=== PATIENT | female | born 1945 | race Caucasian/White ===

== ENCOUNTER 2016-04-27 19:05 | Emergency (ER) | payer MEDICARE ==
[~2016-04-27] VITALS: Ht 172.7 cm; Wt 98.0 kg
[~2016-04-27 19:05] MED LIST: ALEN70TA39 PO; AMIT25 PO; ASPI81TA82 PO; CARV12.52 PO; FURO1TAB93 PO; KLOR20TA6 PO; LASI20TA PO; LEVO50TA4 PO; LOSA50TA PO; METF850 PO; PIOG15 PO; SIMV40 PO; ULTR50TA PO; VITA20003 PO
[2016-04-27 19:08] VITALS: BP 165/77; PULSE 84; RESP 15; TEMP 98.1; O2SAT 96
[2016-04-27 20:14] VITALS: BP 142/78; PULSE 78; RESP 16; O2SAT 98
[2016-04-27] MEDS ORDERED: KETOROLAC TROMETHAMINE 30 MG/ML (IVP) VIAL IVP ONE (20:15)
[2016-04-27] MEDS ORDERED: SODIUM CHLORID 0.9% 500 ML INJ 500 ML IV ONE (20:15)
[2016-04-27] MEDS ORDERED: SODIUM CHLORIDE 0.9% FLUSH 5 ML FLUSH IVF PRN (20:15)
[2016-04-27] MEDS ORDERED: HYDROmorphone HCL PF 1 MG/ML VIAL IVS ONE (20:15)
[2016-04-27] MEDS ORDERED: ONDANSETRON HCL 4 MG/2 ML VIAL IVP ONE (20:15)
--- NOTE | 2016-04-27 20:15 | PD ---
HPI Chief Complaint: Flank/Kidney Pain Time Seen by Provider: 20:00 Travel History International Travel<30 days: No Contact w/Intl Traveler<30days: No Traveled to known affect area: No History of Present Illness HPI The patient is a 70-year-old female who presents emergency department for right flank pain and right low back pain that started this morning. The patient complains of pain located mid right lumbar region and flank area that is nonradiating, but is associated with hematuria. The patient denies any urgency, frequency, or dysuria. The patient does complain of mild nausea, but denies any vomiting. The patient does have a history of similar symptoms in the past secondary to kidney stone, and needed lithotripsy at that time for the kidney stone. The patient does not have a local urologist, her primary physician is in [place], [place]. The patient does have a history of goiter removal and is currently on level thyroxine, as well as a history of cardiomyopathy for which she takes medications. Symptoms are moderate, possibly exacerbated by kidney stone, and there are no current alleviating factors. PFSH Past Medical History Cancer: Yes (LEFT BREAST 2002) Cardiovascular Problems: Yes (HEART CATH -INSERTION AICD- TURNED OFF) Diabetes: Yes Patient Takes Glucophage: Yes Endocrine: Yes Genitourinary: Yes (STONES) Hepatitis: No Hiatal Hernia: No Immune Disorder: No Kidney Stones: Yes Musculoskeletal: Yes (BACK AND NECK PAIN) Neurologic: Yes (NEUROPATHY TOES) Psychiatric: No Reproductive: No Respiratory: No Thyroid Disease: Yes Tetanus Vaccination: > 5 Years Influenza Vaccination: Yes Past Surgical History AICD: Yes (AICD - TURNED OFF) Cardiac Surgery: Yes (HEART CATH -INSERTION AICD; AICD TURNED OFF) Oral Surgery: Yes (T&A AGE 7) Other Surgery: Yes (PARATHYROID REMOVAL, GOITER REMOVAL) Social History Alcohol Use: No Tobacco Use: Yes (1 PPD) Substance Use: No Allergies-Medications (Allergen,Severity, Reaction): Coded Allergies: Amoxicillin (Unverified Allergy, Intermediate, HIVES, 04/27/16) Augmentin (Unverified Allergy, Intermediate, NAUSEA, 04/27/16) Keflex (Unverified Allergy, Intermediate, ITCHING , 04/27/16) Morphine (Unverified Allergy, Intermediate, VOMITING, 04/27/16) Cipro (Unverified Allergy, Mild, ITCHING, 04/27/16) Hydrocodone (Unverified Allergy, Unknown, NAUSEA, 04/27/16) Reported Meds & Prescriptions Reported Meds & Active Scripts Active Reported Vitamin D3 (Cholecalciferol) 2,000 Unit Chew 2,000 Units CHEW DAILY Simvastatin 40 Mg Tab 40 Mg PO HS Losartan (Losartan Potassium) 50 Mg Tab 50 Mg PO DAILY Levothyroxine (Levothyroxine Sodium) 75 Mcg Tab 75 Mcg PO DAILY Klor-Con M20 (Potassium Chloride Microencaps) 20 Meq Tab 20 Meq PO DAILY Furosemide 40 Mg Tab 40 Mg PO DAILY Carvedilol 12.5 Mg Tab 12.5 Mg PO BID Aspirin 81 (Aspirin) 81 Mg Tabdr 81 Mg PO DAILY Amitriptyline (Amitriptyline HCl) 25 Mg Tab 25 Mg PO HS Actoplus Met (Pioglitazone-Metformin) 15-850 mg Tab 1 Tab PO DAILY Review of Systems Except as stated in HPI: all other systems reviewed are Neg General / Constitutional: No: Fever Cardiovascular: No: Chest Pain or Discomfort Respiratory: No: Shortness of Breath Gastrointestinal: Positive: Nausea, No: Vomiting Genitourinary: Positive: Hematuria, Flank Pain, No: Urgency, Frequency, Dysuria Musculoskeletal: Positive: Pain (right mid lumbar pain), No: Weakness Skin: No Rash Physical Exam Narrative GENERAL: Awake, alert, pleasant 70-year-old female who appears her stated age is in no acute respiratory distress. SKIN: Warm and dry. HEAD: Atraumatic. Normocephalic. EYES: Pupils equal and round. No scleral icterus. No injection or drainage. ENT: No nasal bleeding or discharge. Mucous membranes pink and moist. NECK: Trachea midline. No JVD. CARDIOVASCULAR: Regular rate and rhythm. No murmur appreciated. Pacemaker in place chest wall. RESPIRATORY: No accessory muscle use. Clear to auscultation. Breath sounds equal bilaterally. GASTROINTESTINAL: Abdomen soft, non-tender, nondistended. No rebound tenderness. Back: No CVA tenderness. MUSCULOSKELETAL: No obvious deformities. No clubbing. No cyanosis. No edema. NEUROLOGICAL: Awake and alert. No obvious cranial nerve deficits. Motor grossly within normal limits. Normal speech. PSYCHIATRIC: Appropriate mood and affect; insight and judgment normal. Data Data Last Documented VS Vital Signs Date Time Temp Pulse Resp B/P Pulse Ox O2 Delivery O2 Flow Rate FiO2 04/27/16 21:54 76 14 138/74 97 Room Air 04/27/16 19:08 98.1 Orders Complete Blood Count With Diff (04/27/16 20:06) Comprehensive Metabolic Panel (04/27/16 20:06) Lipase (04/27/16 20:06) Urinalysis - C+S If Indicated (04/27/16 20:06) Ct Abd/Pel W/O Iv Contrast (04/27/16 20:06) Iv Access Insert/Monitor (04/27/16 20:06) Ecg Monitoring (04/27/16 20:06) Oximetry (04/27/16 20:06) Ondansetron Inj (Zofran Inj) (04/27/16 20:15) Sodium Chloride 0.9% Flush (Ns Flush) (04/27/16 20:15) Ketorolac Inj (Toradol Inj) (04/27/16 20:15) Hydromorphone Pf Inj (Dilaudid Pf Inj) (04/27/16 20:15) Sodium Chlorid 0.9% 500 Ml Inj (Ns 500 M (04/27/16 20:15) Urine Culture (04/27/16 20:13) Prochlorperazine Inj (Compazine Inj) (04/27/16 21:00) Labs Laboratory Tests Test 04/27/16 04/27/16 20:13 20:51 White Blood Count 8.7 TH/MM3 Red Blood Count 3.87 MIL/MM3 Hemoglobin 12.3 GM/DL Hematocrit 35.0 % Mean Corpuscular Volume 90.4 FL Mean Corpuscular Hemoglobin 31.7 PG Mean Corpuscular Hemoglobin 35.1 % Concent Red Cell Distribution Width 15.2 % Platelet Count 202 TH/MM3 Mean Platelet Volume 9.7 FL Neutrophils (%) (Auto) 79.4 % Lymphocytes (%) (Auto) 13.0 % Monocytes (%) (Auto) 5.8 % Eosinophils (%) (Auto) 1.4 % Basophils (%) (Auto) 0.4 % Neutrophils # (Auto) 6.9 TH/MM3 Lymphocytes # (Auto) 1.1 TH/MM3 Monocytes # (Auto) 0.5 TH/MM3 Eosinophils # (Auto) 0.1 TH/MM3 Basophils # (Auto) 0.0 TH/MM3 CBC Comment DIFF FINAL Differential Comment Urine Color LIGHT-YELLOW Urine Turbidity CLEAR Urine pH 5.0 Urine Specific [place] 1.004 Urine Protein TRACE mg/dL Urine Glucose (UA) NEG mg/dL Urine Ketones NEG mg/dL Urine Occult Blood LARGE Urine Nitrite NEG Urine Bilirubin NEG Urine Urobilinogen LESS THAN 2.0 MG/DL Urine Leukocyte Esterase TRACE Urine RBC 2 /hpf Urine WBC 2 /hpf Urine Amorphous Sediment RARE Urine Bacteria MOD /hpf Microscopic Urinalysis Comment CULTURE INDICATED Sodium Level 132 MEQ/L Potassium Level 4.2 MEQ/L Chloride Level 97 MEQ/L Carbon Dioxide Level 25.4 MEQ/L Anion Gap 10 MEQ/L Blood Urea Nitrogen 25 MG/DL Creatinine 1.89 MG/DL Estimat Glomerular Filtration 26 ML/MIN Rate Random Glucose 108 MG/DL Calcium Level 10.0 MG/DL Total Bilirubin 0.4 MG/DL Aspartate Amino Transf 21 U/L (AST/SGOT) Alanine Aminotransferase 21 U/L (ALT/SGPT) Alkaline Phosphatase 58 U/L Total Protein 7.3 GM/DL Albumin 3.6 GM/DL Lipase 83 U/L [facility] Medical Decision Making Medical Screen Exam Complete: Yes Emergency Medical Condition: Yes Medical Record Reviewed: Yes Interpretation(s) Laboratory Tests Test 04/27/16 04/27/16 20:13 20:51 White Blood Count 8.7 TH/MM3 Red Blood Count 3.87 MIL/MM3 Hemoglobin 12.3 GM/DL Hematocrit 35.0 % Mean Corpuscular Volume 90.4 FL Mean Corpuscular Hemoglobin 31.7 PG Mean Corpuscular Hemoglobin 35.1 % Concent Red Cell Distribution Width 15.2 % Platelet Count 202 TH/MM3 Mean Platelet Volume 9.7 FL Neutrophils (%) (Auto) 79.4 % Lymphocytes (%) (Auto) 13.0 % Monocytes (%) (Auto) 5.8 % Eosinophils (%) (Auto) 1.4 % Basophils (%) (Auto) 0.4 % Neutrophils # (Auto) 6.9 TH/MM3 Lymphocytes # (Auto) 1.1 TH/MM3 Monocytes # (Auto) 0.5 TH/MM3 Eosinophils # (Auto) 0.1 TH/MM3 Basophils # (Auto) 0.0 TH/MM3 CBC Comment DIFF FINAL Differential Comment Urine Color LIGHT-YELLOW Urine Turbidity CLEAR Urine pH 5.0 Urine Specific [place] 1.004 Urine Protein TRACE mg/dL Urine Glucose (UA) NEG mg/dL Urine Ketones NEG mg/dL Urine Occult Blood LARGE Urine Nitrite NEG Urine Bilirubin NEG Urine Urobilinogen LESS THAN 2.0 MG/DL Urine Leukocyte Esterase TRACE Urine RBC 2 /hpf Urine WBC 2 /hpf Urine Amorphous Sediment RARE Urine Bacteria MOD /hpf Microscopic Urinalysis Comment CULTURE INDICATED Sodium Level 132 MEQ/L Potassium Level 4.2 MEQ/L Chloride Level 97 MEQ/L Carbon Dioxide Level 25.4 MEQ/L Anion Gap 10 MEQ/L Blood Urea Nitrogen 25 MG/DL Creatinine 1.89 MG/DL Estimat Glomerular Filtration 26 ML/MIN Rate Random Glucose 108 MG/DL Calcium Level 10.0 MG/DL Total Bilirubin 0.4 MG/DL Aspartate Amino Transf 21 U/L (AST/SGOT) Alanine Aminotransferase 21 U/L (ALT/SGPT) Alkaline Phosphatase 58 U/L Total Protein 7.3 GM/DL Albumin 3.6 GM/DL Lipase 83 U/L CT of the abdomen and pelvis reveals a 9 mm stone in the distal right ureter causing severe dilatation of the more proximal collecting system and ureter. There is also prominent right perinephric stranding extending into the right retroperitoneum. Differential Diagnosis Differential diagnosis includes nephrolithiasis, pyelonephritis, atypical cholecystitis, inferior myocardial infarction, lower lobe pneumonia, UTI, biliary colic, choledocholithiasis. Narrative Course IV was established, labs were drawn and sent, and the patient was placed on cardiac telemetry monitoring and continuous pulse oximetry monitoring. The patient was inlayer silver Dilaudid, Toradol, Zofran, and IV fluids. Noncontrast CT of the abdomen and pelvis was performed to evaluate for possible nephrolithiasis. UA was sent to lab. UA reveals blood. Creatinine is elevated at 1.89, her last creatinine was 0.[address] the abdomen and pelvis reveals a 9 mm stone in the distal right ureter causing severe dilatation of the more proximal collecting system and ureter with prominent right perinephric stranding extending into the right retroperitoneum. Therefore , the on-call urologist, Dr. Helms, was paged at 10 PM. I discussed the patient with the urologist, who states that the patient's symptoms have improved she can follow-up in the office in Saturday, if her symptoms persist, she can be admitted to the medical service. I do discussion with the patient regarding 23 hour observation with urology consultation for possible stent placement versus outpatient follow-up. The patient states her pain has resolved and she would prefer to try outpatient follow-up. Therefore, the patient will be discharged on Zofran, Phenergan, Percocet, and Flomax. She is advised to return if symptoms worsen or progress. The patient agrees and understands. Diagnosis Primary Impression: Nephrolithiasis Additional Impression: Hydronephrosis Qualified Code: N13.2 - Hydronephrosis with urinary obstruction due to renal calculus Referrals: Garrett Helms MD call for appointment Call for appt. on Saturday Patient Instructions: General Instructions, Narcotic given in the ED Additional Instructions: Follow-up with the urologist on Saturday. Return if symptoms worsen or progress. Plenty of fluids to stay hydrated. Med/Other Pt SpecificInfo: Prescription(s) given Scripts Tamsulosin (Flomax)0.4 Mg Cap0.4 Mg PO HS 10 Days Ref 0 Prov:Matthew Pitts MD 04/27/16 Promethazine (Phenergan)25 Mg Tab25 Mg PO ONCE #15 TAB Ref 0 Prov:Matthew Pitts MD 04/27/16 Ondansetron Odt (Zofran Odt)4 Mg Tab4 Mg SL Q6HR PRN (Nausea/Vomiting) #10 TAB Ref 0 Prov:Matthew Pitts MD 04/27/16 Oxycodone-Acetaminophen (Percocet)10-325 mg Tab1 Tab PO Q6H PRN (PAIN) #20 TAB Ref 0 Prov:Matthew Pitts MD 04/27/16 Disposition: 01 DISCHARGE HOME Condition: Stable Matthew Pitts MD Apr 27, 2016 20:14
[2016-04-27] MEDS ORDERED: CHOL1CHW5 CHEW (20:21)
[2016-04-27] MEDS ORDERED: LEVO75TA3 PO (20:21)
[2016-04-27] MEDS ORDERED: AMIT25TA9 PO (20:21)
[2016-04-27] MEDS ORDERED: SIMV40TA PO (20:21)
[2016-04-27] MEDS ORDERED: FURO40TA PO (20:21)
[2016-04-27] MEDS ORDERED: ACTO15TA PO (20:21)
[2016-04-27] MEDS ORDERED: CARV12.52 PO (20:21)
[2016-04-27] MEDS ORDERED: POTA-245 PO (20:21)
[2016-04-27] MEDS ORDERED: LOSA50TA PO (20:21)
[2016-04-27] MEDS ORDERED: ASPI-110 PO (20:21)
[2016-04-27 20:33] LABS: AUTOMATED NEUTROPHIL # 6.9 TH/MM3 (1.8-7.7); BASOPHIL % 0.4 % (0.0-2.0); EOSINOPHIL # 0.1 TH/MM3 (0-0.4); EOSINOPHIL % 1.4 % (0.0-4.0); HEMO FLAGS DIFF FINAL; LYMPHOCYTE # 1.1 TH/MM3 (1.0-4.8); MEAN CELL VOLUME 90.4 FL (80.0-100.0); MEAN CORPUSCULAR HEMOGLOBIN 31.7 PG (27.0-34.0); MEAN CORPUSCULAR HGB CONC 35.1 % (32.0-36.0); MONO % 5.8 % (0.0-8.0); NEUT % 79.4 % (16.0-70.0); PLATELET COUNT 202 TH/MM3 (150-450); RED BLOOD COUNT 3.87 MIL/MM3 (4.00-5.30); RED CELL DISTRIBUTION WIDTH 15.2 % (11.6-17.2); WHITE BLOOD COUNT 8.7 TH/MM3 (4.0-11.0)
[2016-04-27 20:44] LABS: BACTERIA, URINE MOD /hpf; BLOOD, URINE LARGE (NEG); COMMENT (UR) CULTURE INDICATED; CULTURE IF INDICATED CULTURE INDICATED; GLUCOSE,URINE NEG (NEG); KETONE, URINE NEG (NEG); NITRITE,URINE NEG (NEG); URINE COLOR LIGHT-YELLOW (YELLW/STRAW)
[2016-04-27 21:00] VITALS: BP 132/68; PULSE 80; RESP 14; O2SAT 96
[2016-04-27] MEDS ORDERED: PROCHLORPERAZINE INJ 10 MG/2 ML VIAL IVS ONE (21:00)
[2016-04-27 21:29] LABS: ANION GAP 10 MEQ/L (5-15); AST (GOT) 21 U/L (15-37); BICARBONATE 25.4 MEQ/L (21.0-32.0); BLOOD UREA NITROGEN 25 MG/DL (7-18); CHLORIDE 97 MEQ/L (98-107); GLOMERULAR FILTRATION RATE 26 ML/MIN (>89); POTASSIUM 4.2 MEQ/L (3.5-5.1); SODIUM (NA) 132 MEQ/L (136-145)
[2016-04-27 21:33] LABS: ALKALINE PHOSPHATASE 58 U/L (45-117); ALT (GPT) 21 U/L (10-53); TOTAL BILIRUBIN ADULT 0.4 MG/DL (0.2-1.0)
--- NOTE | 2016-04-27 21:48 | RADRPT ---
EXAM DATE/TIME: 04/27/2016 20:31 [facility] COMPARISON: No previous studies available for comparison. INDICATIONS : Right flank pain. ORAL CONTRAST: No oral contrast ingested. RADIATION DOSE: 7.60 CTDIvol (mGy) MEDICAL HISTORY : Diabetes mellitus type 2. Carcinoma, breast. SURGICAL HISTORY : Pacemaker. parathyroid removed ENCOUNTER: Initial ACUITY: 1 day PAIN SCALE: 10/10 LOCATION: Right flank TECHNIQUE: Volumetric scanning of the abdomen and pelvis was performed. Using automated exposure control and adjustment of the mA and/or kV according to patient size, radiation dose was kept as low as reasonably achievable to obtain optimal diagnostic quality images. FINDINGS: There is a 9 mm stone seen at the right distal ureter at the mid pelvis. This causes s evere dilatation of the right collecting system and more proximal aspect of the ureter. There is per inephric stranding seen on the right side. The left kidney is free of stones. The liver, spleen, pancreas, and adrenal glands are normal. Scattered atherosclerotic calcifications are seen in the arterial system. No aneurysm is seen. Pelvic structures appear grossly intact. The bowel appears grossly intact. CONCLUSION: 9 mm stone in the distal right ureter causing severe dilatation of the more proximal collecting system and ureter. There is also prominent right perinephric stranding extending into the right retroperitoneum. Tay Farah MD on April 27, 2016 at 21:27 Board Certified Radiologist. This report was verified electronically.
[2016-04-27 21:54] VITALS: BP 138/74; PULSE 76; RESP 14; O2SAT 97
[2016-04-27] MEDS ORDERED: TAMS5CAP PO (22:51)
[2016-04-27] MEDS ORDERED: PROM25TA5 PO (22:51)
[2016-04-27] MEDS ORDERED: PERC10TA27 PO (22:51)
[2016-04-27] MEDS ORDERED: ZOFR4TAB3 SL (22:51)
[2016-04-27 22:56] VITALS: BP 130/66; PULSE 74; RESP 14; O2SAT 98
[2016-04-27] MEDS ORDERED: oxyCODONE/ACETAMINOPHEN 5 MG/325 MG TAB PO ONE (23:15)
[2016-05-02] MEDS ORDERED: TRAM50TA PO (11:43)
[2016-05-10] MEDS ORDERED: FURO20TA PO (08:51)
== END 2016-04-27 23:26 | disposition home or self-care (01) ==
LOC: NEPA 19:05
DX: N13.2 Hydronephrosis with renal and ureteral calculous obstruction (principal)
CPT/HCPCS: 74176; 80053; 81001; 83690; 85025; 87086; 96361; 96374; 96375; 99284; J0780; J1170; J1885; J2405; J7040

== ENCOUNTER → 2016-05-10 | Day surgery (SDC) | payer MEDICARE ==
[~2016-05-10] VITALS: Ht 172.7 cm; Wt 96.1 kg
[~2016-05-10] MED LIST changes: +ACETAMINOPHEN 325 MG TAB PO PRN; +ACTO15TA PO; -ALEN70TA39 PO; -AMIT25 PO; +AMIT25TA9 PO; +ASPI-110 PO; -ASPI81TA82 PO; +CHOL1CHW5 CHEW; +DO NOT ADM ANY ANTICOAGULANT DRUGS XX PRN; +FAMOTIDINE 20 MG/2 ML VIAL ONE; -FURO1TAB93 PO; +FURO20TA PO; +FURO40TA PO; +FUROSEMIDE 40 MG/4 ML VIAL IV PUSH ONE; +HYDROmorphone HCL PF 1 MG/ML VIAL IV PRN; +INSULIN HUMAN REGULAR 1,000 UNITS/10 ML VIAL SQ PRN; +IOHEXOL 300 MG/ML 50 ML BTL (for RAD DIAG) OTHER ONE; -KLOR20TA6 PO; +LACTATED RINGER'S 1000 ML IV SCH; -LASI20TA PO; -LEVO50TA4 PO; +LEVO75TA3 PO; -METF850 PO; +METOPROLOL TARTRATE 25 MG TAB PO PRN; +MIDAZOLAM HCL 2 MG/2 ML VIAL ONE; +ONDANSETRON HCL 4 MG/2 ML VIAL IV PUSH PRN; +PERC10TA27 PO; +PHENYLEPH/NS 1000 MCG/10 ML SYR IV ONE; -PIOG15 PO; +POTA-245 PO; +PROM25TA5 PO; +PROPOFOL 200 MG/20 ML AMP IV ONE; -SIMV40 PO; +SIMV40TA PO; +SODIUM CHLOR 0.9% 250 ML INJ 250 ML ONE; +SODIUM CHLORID 0.9% 500 ML IV SCH; +TAMS5CAP PO; +TRAM50TA PO; -ULTR50TA PO; +VANCOMYCIN HCL 1000 MG ON-CALL/NS 250 ML IV SCH; +VANCOMYCIN HCL 1000 MG VIAL ONE; -VITA20003 PO; +ZOFR4TAB3 SL; +diphenhydrAMINE HCL 50 MG/ML VIAL ONE; +fentaNYL CITRATE 250 MCG/5 ML AMP ONE; +methylPREDNISolone SOD SUCC 40 MG/1 ML VIAL ONE
[2016-05-10 08:45] VITALS: BP 106/60; PULSE 61; RESP 20; TEMP 98.9; O2SAT 97
[2016-05-10 13:35] VITALS: BP 100/64; PULSE 73; RESP 18; TEMP 97.9; O2SAT 96
--- NOTE | 2016-05-10 23:37 | EKG ---
Date Performed: 05/10/2016 Time Performed: 08:38:45 PTAGE: 70 years EKG: SINUS BRADYCARDIA WITH MARKED SINUS ARRHYTHMIA BORDERLINE ECG PREVIOUS TRACING : 07/14/2014 11.59 Compared to prior tracing no significant change DOCTOR: Thien Chacko Interpretating Date/Time 05/10/2016 23:35:47
--- NOTE | 2016-05-11 09:50 | MP ---
cc: KATE WORKMAN DATE OF SURGERY 05/10/2016 PREOPERATIVE DIAGNOSIS Right ureteral calculus with right hydronephrosis POSTOPERATIVE DIAGNOSIS Right ureteral calculus with right hydronephrosis PROCEDURE Cystoscopy, right ureteroscopy with laser lithotripsy, stone extraction, right retrograde study and right double-J stent insertion. SURGEON Kate Workman MD ANESTHESIA General endotracheal tube FLUIDS One liter of crystalloid. BLOOD LOSS No blood loss. COMPLICATIONS No complications. SPECIMEN Stone fragments DRAINS A 6-Maldivian 22 cm left double J stent. DISPOSITION She tolerated the procedure well and ws transferred to the recovery room in stable addition. INDICATIONS Robyn Rehman is a 70-year-old female who presented to the office with findings of a 7-8 mm right ureteral stone with hydronephrosis on CT scan. Decision was made to bring the patient to the operating room to undergo cystoscopy, right ureteroscopy with laser lithotripsy, stone extraction and right double-J stent insertion. The risks and benefits were discussed preoperatively and she was willing to proceed. PROCEDURE The patient was brought to the operating room, identified by myself as Robyn Rehman. She was placed in the dorsolithotomy position, prepped and draped in the usual sterile fashion, received preprocedure antibiotics, and general endotracheal tube anesthesia was administered. A 22-Maldivian scope was inserted bladder and escamilla cystoscopy did not reveal any abnormalities. Another 3/5 wire was then passed into the right ureteral orifice with a good curl in the kidney. The scope was removed. The rigid ureteroscope was then utilized and passed along the right lower ureter and then the stone was visualized. Using 365 micron laser fiber at a setting of 8 and 10 fragmentation of the stone commenced. The stone was then completely fragmented without difficulty and then using a nitinol basket, the stone fragments were then retrieved and sent to pathology. Retrograde study was then performed with the ureteroscope in place demonstrating no filling defects in the proximal ureter or the collecting system and then the cystoscope was back loaded over the wire and then a 6-Maldivian 22 cm right double-J stent was placed with a good curl in the bladder. The bladder was evacuated. She was awoken and transferred to the Recovery Room in stable condition. She will follow up tomorrow morning in the office tomorrow morning and we will pull her stent at that time. Kate Héctor TUBBSL /12:08 PM /9:44 AM
== END | disposition home or self-care (01) ==
LOC: HSDC 08:05
PROVIDERS: ATTEND Urology
DX: N20.1 Calculus of ureter (principal); I10 Essential (primary) hypertension; E11.9 Type 2 diabetes mellitus without complications
CPT/HCPCS: 00918; 52356; 74420; 82370; 88300; 93005; C1769; C2617; J1200; J1940; J2250; J2370; J2920; J3010; J3370; J7050; Q9967